=== PATIENT | female | born 1955 | race African-American/Black ===

== ENCOUNTER 2019-03-29 12:40 | Inpatient (IN) ==
[2019-03-29] MEDS ORDERED: ASPIRIN PO ONE (13:29)
--- NOTE | 2019-03-29 13:34 | EKG Report ---
Test Performed on : 03/29/2019 1:33:28 PM Test Reason : repeat, rhythm conversion Blood Pressure : / mmHG Vent. Rate : 090 BPM Atrial Rate : 090 BPM P-R Int : 184 ms QRS Dur : 072 ms QT Int : 340 ms P-R-T Axes : 000 -26 -14 degrees QTc Int : 415 ms Normal sinus rhythm. Septal infarct (cited on or before 29-MAR-2019) Abnormal ECG When compared with ECG of 29-MAR-2019 12:54, (Unconfirmed) Vent. rate has decreased BY 64 BPM Questionable change in initial forces of Anteroseptal leads Nonspecific T wave abnormality, worse in Inferior leads Nonspecific T wave abnormality now evident in Lateral leads Unconfirmed Result
--- NOTE | 2019-03-29 13:38 | EKG Report ---
Test Performed on : 03/29/2019 12:54:13 PM Test Reason : ELEVATED HEART RATE Blood Pressure : / mmHG Vent. Rate : 154 BPM Atrial Rate : 163 BPM P-R Int : 000 ms QRS Dur : 072 ms QT Int : 294 ms P-R-T Axes : 000 -06 014 degrees QTc Int : 470 ms Supraventricular tachycardia. Anteroseptal infarct (cited on or before 29-MAR-2019) Abnormal ECG When compared with ECG of 18-OCT-2009 14:50, Vent. rate has increased BY 76 BPM Questionable change in QRS axis Serial changes of Anteroseptal infarct present Unconfirmed Result
[2019-03-29 15:11] LABS: BASO# 0.03 X1000 (0.0-0.2); BASO% 0.4 % (0.0-0.8); EOS# 0.33 X1000 (0.0-0.7); EOS% 3.9 % (0.0-10.0); HEMOGLOBIN 12.9 g/dL (12.0-16.0); IMM GRAN# 0.02 X1000 (0.0-0.04); IMM GRAN% 0.2 % (0.0-0.5); LYMPH# 3.44 X1000 (1.2-3.4); LYMPH% 40.6 % (20.5-51.1); MCHC 33.1 g/dL (33-37); MCV 87.6 FL (81-99); MONO# 0.66 X1000 (0.11-0.59); MONO% 7.8 % (1.7-9.3); MPV 9.3 FL (7.4-10.4); NEUT# 3.99 X1000 (1.4-6.5); NEUT% 47.1 % (42.2-75.2); PLT 289 X1000 (130-400); RBC 4.45 XMIL (4.2-5.4); RDW 15.1 % (11.5-14.5); WBC 8.47 X1000 (4.8-10.8)
[2019-03-29 15:15] LABS: INR 1.03; PROTIME 13.6 Seconds (11.0-16.0)
[2019-03-29 15:16] LABS: PTT 29.9 Seconds (22.3-41.8)
[2019-03-29 15:42] LABS: ALB/GLOB RATIO 1.1; ALBUMIN 3.8 g/dL (3.5-5.0); CREATININE 9.6 mg/dL (0.5-0.9); MAGNESIUM 2.5 mg/dL (1.5-2.7); PHOSPHORUS 5.3 mg/dL (2.7-4.5); POTASSIUM 4.4 mmol/L (3.5-5.1); TOTAL BILIRUBIN 0.31 mg/dL (0.20-1.00); TOTAL PROTEIN 7.4 g/dL (6.3-8.3)
[2019-03-29 16:06] LABS: CK INDEX 2.9 (0.0-2.5); CK-MB 5.19 ng/mL (0.0-5.0)
[2019-03-29] MEDS ORDERED: LOPRESSOR PO ONE (16:42)
--- NOTE | 2019-03-29 16:55 | PROVIDER DOCUMENTATION ---
This chart was entered by Debby Hunter Scribe, acting as scribe for Matt Yeh MD. HPI-Cardiac General - General Chief Complaint: Palpitations Stated Complaint: INCREASED HEART RATE Time Seen by Provider: 03/29/19 13:23 Source: patient, family () Allergies/Adverse Reactions: Patient Allergies Allergy/AdvReac Type Severity Reaction Status Date / Time erythromycin base Allergy Mild RASH Verified 03/29/19 15:36 [Erythromycin Base] Home Medications: Home Medication List Medication Instructions Recorded Confirmed Last Taken Type Aspirin [Baby Aspirin] 81 mg PO DAILY 04/12/12 03/28/17 03/27/17 07:00 History Digoxin [Lanoxin] 125 mcg PO DAILY 04/12/12 03/28/17 03/27/17 07:00 History Diltiazem C.d. [Cardizem Cd] 240 mg PO DAILY 04/12/12 03/28/17 03/27/17 07:00 History LISINOpril [Prinivil] 20 mg PO DAILY 04/12/12 03/28/17 03/27/17 07:00 History Cyclobenzaprine [Flexeril] 10 mg PO TID #20 tablet 03/28/17 Unknown Rx Diclofenac Na D.r. [Voltaren] 50 mg PO 4XDAY #20 tab 03/28/17 Unknown Rx Insulin Novolog 70/30 [Novolog Mix 45 units SUBQ HS 03/28/17 03/28/17 03/27/17 21:00 History 70/30] Insulin Novolog 70/30 [Novolog Mix 72 units SUBQ DAILY 03/28/17 03/28/17 03/28/17 12:00 History 70/30] Labetalol HCl 300 mg PO DAILY 03/28/17 03/28/17 03/27/17 07:00 History Omeprazole [Prilosec] 20 mg PO DAILY@0700 #20 capsule 03/28/17 Unknown Rx Pentoxifylline 400 mg PO BID 03/28/17 03/28/17 03/27/17 07:00 History Spironolactone 100 mg PO DAILY 03/28/17 03/28/17 03/27/17 07:00 History - History of Present Illness-Cardiac Nature of Presenting Problem: 63 yobf presents to the ed from dialysis. pt did not complete tx at dialysis and was sent to ed due to HR being in 170's. pt when triage was in SVT in the 150's and sts has hx of afib but has not been an issue for over 10 years. pt once on exam was back in NSR and had no complaints. pt denies pain and could not feel her heart racing with onset. pt sts when she went to dialysis on Wednesday all was good and unsure when SVT started Location: denies: other (denies any chest pain or sob) Quality of Pain: reports: none Severity in ED: moderate Onset/Duration: unsure Timing: still present Context/Activities at Onset: reports: light activity Modifying Factors: improves with: nothing Palpitation Quality: fast/pounding heart beat History of arrythmia: reports: A-Fib Nitro Today/Relief: reports: no nitro taken today Aspirin Treatment Today: reports: no aspirin today Prior Chest Pain/Cardiac Workup: reports: other (hx of afib) Associated Symptoms: reports: abdominal pain Similar Symptoms Previously?: Yes (afib over 10 years prior) Recently Seen Here or By Another Healthcare Provider: No Review of Systems - Adult - REVIEW OF SYSTEMS - ADULT Constitutional: denies: chills, fever Eyes: reports: no symptoms reported Ears, Nose, Mouth & Throat: reports: no symptoms reported Cardiovascular: reports: see HPI, palpitations. denies: chest pain, syncope Respiratory: denies: cough, shortness of breath, wheezing Gastrointestinal: denies: diarrhea, nausea, vomiting Genitourinary: reports: no symptoms reported Musculoskeletal: denies: back pain, neck pain Integumentary: reports: no symptoms reported Neurological: reports: no symptoms reported Psychiatric: reports: no symptoms reported Endocrine: reports: no symptoms reported Hematologic/Lymphatic: reports: no symptoms reported Allergic/Immunologic: reports: no symptoms reported All Other Systems: Reviewed and Negative Past History - Adult - PAST MEDICAL HISTORY-ADULT Review of Records: reports: Old Records Reviewed, Nursing Assessment Review, Medications Reviewed, Social history reviewed & non-contributory. Major Childhood Illnesses: reports: denies history Cardiovascular: reports: HTN, hyperlipidemia Respiratory: reports: denies history Gastrointestinal: reports: denies history Obstetrical/Gynecological: reports: denies history Genitourinary: reports: dialysis, ESRD Musculoskeletal: reports: denies history Neurological: reports: denies history Psychiatric: reports: denies history Endocrine/Immune: reports: Diabetes Diabetes Type: Type 2 Other Conditions: reports: denies history - PRIOR SURGERIES/PROCEDURES Surgical/Procedure History: reports: hysterectomy, other (dialysis shunt placed) - IMMUNIZATION STATUS Childhood Immunizations: See Nurse Assessment Flu Vaccine: See Nurse Assessment - FAMILY HISTORY Family History: reviewed, not pertinent - SOCIAL HISTORY Smoking: denies Substance Use: denies Alcohol Use Frequency: never Living Situation: family Physical Exam-General - PHYSICAL EXAM-ADULT Initial Vital Signs Reviewed: Yes - CONSTITUTIONAL General Appearance: appears well, alert, no apparent distress (sx resolved prior to exam), obese - EYES Eyes: PERRL/EOMI, pink conjunctivae - HEAD, EARS, NOSE, MOUTH & THROAT HENMT: moist mucous membranes, normal ENT inspection - NECK Neck: non-tender, full range of motion, supple, normal inspection - RESPIRATORY Respiratory: chest non-tender, lungs clear, normal breath sounds - CARDIOVASCULAR Cardiovascular: normal peripheral pulses, regular rate, rhythm - GASTROINTESTINAL (ABDOMEN) Abdominal Exam: normal bowel sounds, non tender, soft - LYMPHATIC Lymphatic: no adenopathy - MUSCULOSKELETAL Back Exam: normal inspection, no CVA tenderness, no vertebral tenderness Extremity: other (has dialysi raph LUE with thrill felt but is not bounding) - SKIN Integumentary: normal color, normal turgor, warm/dry - NEUROLOGIC Neurologic: grossly normal - PSYCHIATRIC Psych/Mental Status: normal mood/affect, normal thought content, normal thought process, oriented x 3 - HEART Score HEART Score: History: Slightly Suspicious HEART Score: ECG: Non-Specific Repolarization Disturbance/LBBB/PM HEART Score: Age: 45-65 Years HEART Score: Risk Factors for Atherosclerotic Disease: > or = 3 Risk Factors or History of Atherosclerotic Disease HEART Score: Troponin: 1-3x Normal Limit Total HEART Score:: 5 Progress - PLAN OF CARE/RESULTS Progress/Plan/Lab Results: Vital Signs - 8 hr 03/29/19 13:03 03/29/19 15:32 Temperature 98.8 F Pulse Rate 150 H 83 Respiratory Rate 20 16 Blood Pressure 137/84 119/64 O2 Sat by Pulse Oximetry 96 97 Laboratory Results - last 24 hr 03/29/19 03/29/19 03/29/19 15:00 15:00 15:00 WBC 8.47 RBC 4.45 Hgb 12.9 Hct 39.0 MCV 87.6 MCH 29.0 MCHC 33.1 RDW Std Deviation 15.1 H Plt Count 289 MPV 9.3 Immature Gran % (Auto) 0.2 Neut % (Auto) 47.1 Lymph % (Auto) 40.6 Vernon % (Auto) 7.8 Eos % (Auto) 3.9 Baso % (Auto) 0.4 Immature Gran # (Auto) 0.02 Neut # (Auto) 3.99 Lymph # (Auto) 3.44 H Vernon # (Auto) 0.66 H Eos # (Auto) 0.33 Baso # (Auto) 0.03 PT INR PTT (Actin FS) Sodium 132 L Potassium 4.4 Chloride 89 L Carbon Dioxide 23 L Anion Gap 20 BUN 43 H Creatinine 9.6 H Estimated GFR/1.73 m2 5 BUN/Creatinine Ratio 4 Glucose 256 H Calculated Osmolality 284 Calcium 10.0 Phosphorus 5.3 H Magnesium 2.5 Total Bilirubin 0.31 AST 12 ALT 12 Alkaline Phosphatase 101 Creatine Kinase 182 H Creatine Kinase Index 2.9 H CK-MB (CK-2) 5.19 H Troponin T Mkg-G-[id number] Pept 2006 H Total Protein 7.4 Albumin 3.8 Globulin 3.6 Albumin/Globulin Ratio 1.1 03/29/19 03/29/19 15:00 15:00 WBC RBC Hgb Hct MCV MCH MCHC RDW Std Deviation Plt Count MPV Immature Gran % (Auto) Neut % (Auto) Lymph % (Auto) Vernon % (Auto) Eos % (Auto) Baso % (Auto) Immature Gran # (Auto) Neut # (Auto) Lymph # (Auto) Vernon # (Auto) Eos # (Auto) Baso # (Auto) PT 13.6 INR 1.03 PTT (Actin FS) 29.9 Sodium Potassium Chloride Carbon Dioxide Anion Gap BUN Creatinine Estimated GFR/1.73 m2 BUN/Creatinine Ratio Glucose Calculated Osmolality Calcium Phosphorus Magnesium Total Bilirubin AST ALT Alkaline Phosphatase Creatine Kinase Creatine Kinase Index CK-MB (CK-2) Troponin T 0.373 H* [id number] Pept Total Protein Albumin Globulin Albumin/Globulin Ratio Orders Category Date Time Status Cardiac Monitoring DIRECTED Care 03/29/19 13:29 Active Oxygen Therapy- ED Nursing DIRECTED Care 03/29/19 13:29 Active Saline Loc NOW Care 03/29/19 13:29 Active CHEST-PORTABLE [RAD] Stat Exams 03/29/19 16:42 Ordered CBC WITH ELECTRONIC DIFF [HEME] Stat Lab 03/29/19 15:00 Completed CK PROFILE [SP CHEM] Stat Lab 03/29/19 15:00 Completed COMPREHENSIVE METABOLIC PANEL [CHEM] Stat Lab 03/29/19 15:00 Completed MAGNESIUM [CHEM] Stat Lab 03/29/19 15:00 Completed PRO B-NATRIURETIC PEPTIDE Stat Lab 03/29/19 15:00 Completed PROTIME WITH INR [COAG] Stat Lab 03/29/19 15:00 Completed PTT [COAG] Stat Lab 03/29/19 15:00 Completed TROPONIN T Stat Lab 03/29/19 15:00 Completed phos [PHOSPHORUS] [CHEM] Stat Lab 03/29/19 15:00 Completed Aspirin Med 03/29/19 13:29 Discontinued 325 mg PO NOW ONE Metoprolol [Lopressor] Med 03/29/19 16:42 Discontinued 25 mg PO NOW ONE CP/SOB/Palp >45 yrs of Age Stat Oth 03/29/19 13:29 Ordered EKG [EKG] Stat Ther 03/29/19 12:54 Draft EKG [EKG] Stat Ther 03/29/19 13:29 Draft Transfer/Admit Order [TRANSFER] Routine Transfer 03/29/19 16:38 Ordered Result Diagrams: 03/29/19 15:00 03/29/19 15:00 - REASSESSMENT Reassessment #1 Time Reassessed: 16:34 Status: improving (Patient spontaneously converted to NSR shortly after arrival to bed. Given ASA. IN dialysis now. Will ask hospitalist to admit to run serial Thu.) - EKG 1 Time of EKG reading by physician:: 12:54 EKG Read and Signed by:: Matt Yeh EKG Interpretation (*Must complete 3 of following elements*): Abnormal Rate: 154 Rhythm: supraventricular tachycardia [place]: normal QRS: poor R wave progression KS Interval: normal ST Wave: normal Comments: anteroseptal infarct, age undetermined 2 Time of EKG reading by physician:: 13:33 EKG Read and Signed by:: Matt Yeh EKG Interpretation (*Must complete 3 of following elements*): Abnormal Rate: 90 Rhythm: nsr [place]: normal QRS: poor R wave progression, other (low voltage) [place] Interval: normal ST Wave: normal Prior EKG Comparison: changes noted Comments: septal infarct, age undetemined - CONSULTS/PCP/HOSPITALIST Notification #1 *Consult/PCP/Hospitalist*: mark with dr arreola Time Discussed: 13:53 (pt will have dialysis from er per mark) Reason/Comments: phone consult #2 Consult: Chandrika paged at 1630 Time Discussed: 16:40 Consult Disposition: Will see in ED #3 Consult: Sugey paged at 1630 Departure - Departure Date of Disposition Decision: 03/29/19 Time of Disposition Decision: 16:36 DIAGNOSIS: SVT (supraventricular tachycardia), Elevated troponin I level, ESRD on hemodialysis Disposition: ADMITTED INPATIENT 09 Certified Medical Emergency: Emergent Condition: Fair Referrals and Follow-Ups: Catracho Abreu [Primary Care Provider] - - Critical Care Note This patient required my direct & personal management of CC.: Yes Total Time (mins): 35 (interventions for renal/cardaic) Critical Care Statement: This patient required my direct personal management to treat or rule out processes, the absence of which, could potentiallly result in sudden, clinically significant life or limb threatening deterioration. Attestation - Physician/ STARR Attestation Patient care was provided by Advanced Practice Provider:: No The physician spent face to face time with patient:: Yes Advanced Practice Provider documentation review:: Supervising physician onsite and consulted in the evaluation and care of this patient. The physician did have a face to face encounter with the patient. This chart was documented by the indicated scribe, (Debby Hunter Scribe) and accurately reflects the services I performed and decisions made by me, Matt Yeh MD, as attested by the provider's signature.
[2019-03-29] MEDS ORDERED: TIGHT: 0.2 ML/HR FOR DIALYSIS MISC PRN (18:39)
[2019-03-29] MEDS ORDERED: HEPARIN IV PRN (18:39)
[2019-03-29] MEDS ORDERED: NS 2,000 ML MISC PRN (18:39)
--- NOTE | 2019-03-29 18:40 | HISTORY AND PHYSICAL ---
PRIMARY CARE PHYSICIAN: Catracho Abreu. CHIEF COMPLAINT: Palpitations and an increased heart rate. HISTORY OF PRESENTING ILLNESS: This is a 63-year-old female [facility] she was at dialysis receiving treatment today, and she was unable to finish her dialysis because her heart rate was found to be in the 170s. When she arrived to triage here at [facility], she was in SVT in the 150s. She spontaneously converted to normal sinus rhythm. She denied having any palpitations, chest pain, or shortness of breath. She states she has had a history of atrial fibrillation, but has not had any issues with that for over 10 years now. She states she has been on dialysis for about 2 years, and has had no problems with that. She went Wednesday and did not have any issues, and was unsure when the SVT even started. Her workup showed a sodium of 132, BUN of 43, and creatinine 9.6. She had a creatine kinase of 182, CK-MB of 5.19, and troponin 0.373. We do not have any previous labs to compare if she has had an elevated troponin secondary to her end-stage renal disease. She will be admitted for further evaluation and treatment. PAST MEDICAL HISTORY: End-stage renal disease with dialysis, hypertension, hyperlipidemia, diabetes type 2, and atrial fibrillation. PAST SURGICAL HISTORY: Hysterectomy and a dialysis shunt. FAMILY HISTORY: Reviewed and noncontributory. SOCIAL HISTORY: She currently lives with family. Denies any tobacco, alcohol or illicit drug use. ALLERGIES: To erythromycin base. HOME MEDICATIONS: Current list will need to be obtained, reconciled, reviewed, and restarted as appropriate. I will place an order for nursing to update and confirm home medications. LABORATORY DATA: White blood cell count of 8.47, hemoglobin 12.9, hematocrit 39, and platelets 289,000. PT and INR of 13.3 and 1.03. Sodium 132, potassium 4.4, chloride 89, CO2 23, BUN of 43, creatinine 9.6, glucose 256, and magnesium 2.5. Creatine kinase of 182, CK-MB of 5.19, and troponin 0.373. ProBNP of 2006. EKG on arrival showed SVT at 154 after she spontaneously converted. She we did an EKG that showed normal sinus rhythm at 90. REVIEW OF SYSTEMS: She denies any fever, chills, blurred vision, dizziness, chest pain, coughing, or shortness of breath. She denies any abdominal pain, constipation, diarrhea, burning or hurting with urination. PHYSICAL EXAMINATION: On arrival, she had a temperature of 98.8 degrees, pulse 150, respirations 20, blood pressure 137/84 and saturating 96% on room air. Currently, her heart rate is 83. GENERAL: This is a 63-year-old female who is lying in the bed and answers questions appropriately. HEENT: Normocephalic, atraumatic. Normal ENT inspection. Oropharynx and nares are clear. EYES: Pupils are equal, round, and reactive to light and accommodation. Extraocular movements are intact. NECK: Normal inspection. Normal range of motion. LUNGS: Clear to auscultation bilaterally with equal lung expansion and chest wall movement. HEART: Regular rate and rhythm. No murmurs, rubs, or gallops. ABDOMEN: Soft, nontender, and nondistended. Bowel sounds are present x4 quadrants. MUSCULOSKELETAL: She had 5/5 strength x4 extremities. NEUROLOGICAL: The cranial nerves 2-12 are grossly intact. ASSESSMENT: 1. SVT spontaneously converted back to normal sinus rhythm. 2. Elevated troponin. 3. End-stage renal disease with dialysis. 4. Diabetes type 2. 5. History of atrial fibrillation. PLAN: She will be admitted to the medical unit, and placed on telemetry. She is currently in the dialysis department receiving the remainder of her dialysis from today. We will consult Dr. Triplett. Consult Cardiology. Place on a diabetic diet. SCD's for DVT prophylaxis. Update and confirm home medications. Do serial cardiac enzymes q.8h x3. Recheck CBC and BMP in the morning. I will place on pattern blood sugars with sliding scale insulin. Further orders after seen by attending and consultants. Dictated by LENI Hall for Dimitrios Harvey MD cc: LENI Hall MD
--- NOTE | 2019-03-29 18:46 | Diag Imaging Result Doc PS360 ---
EXAM: CHEST-PORTABLE HISTORY: CP TECHNIQUE: Chest single view COMPARISON: 05/05/2017 FINDINGS: The lungs are well expanded. The heart is not enlarged. The vessels are not distended. There are no infiltrates. No effusion identified. IMPRESSION: Negative exam. Electronically signed by Dontae Lagos 03/29/2019 6:43 PM
[2019-03-29] MEDS ORDERED: NEURONTIN PO SCH (21:00)
[2019-03-29] MEDS ORDERED: CARDIZEM CD PO SCH (21:00)
[2019-03-29] MEDS ORDERED: NOVOLOG MIX 70/30 SUBQ SCH (21:00)
[2019-03-29] MEDS ORDERED: AVAPRO PO SCH (21:00)
[2019-03-29] MEDS ORDERED: TYLENOL PO PRN (21:22)
[2019-03-29] MEDS ORDERED: ZOFRAN IV PRN (21:22)
[2019-03-29] MEDS: HUMALOG SUBQ SCH (22:33)
[2019-03-29 23:01] LABS: CK INDEX 2.5 (0.0-2.5); CK-MB 4.44 ng/mL (0.0-5.0)
[2019-03-29] MEDS: NOVOLOG MIX 70/30 SUBQ SCH (23:31)
[2019-03-30] MEDS: HUMALOG SUBQ SCH ×2 (06:34→11:45)
--- NOTE | 2019-03-30 06:34 | HISTORY AND PHYSICAL ---
ADDENDUM: The patient was seen and examined by me face to face. All the laboratory, vital signs and images were reviewed. The patient presented to the hospital with elevated heart rate. It looks like SVT in the 170s. Apparently, she was getting dialysis, although she was about to start dialysis today, but before that, she tried to eat something, and she felt some kind of discomfort in the epigastric area like if she has been eating too much. They checked her heart rate, and it was elevated, and they sent it to the hospital immediately. She was evaluated. She does have a history of atrial fibrillation, but she has not had any kind of problem for the past 10 years. She has been on dialysis for 2 years now. She converted by herself to normal sinus in the emergency department. She was admitted for observation, and we started dialysis also today. Cardiology Department has been consulted. She will be transferred to the PCU unit. We will monitor this patient closely. I will continue with her home medications. I agree with the nurse practitioner's assessment and plan. cc: Dimitrios Harvey MD
[2019-03-30 06:35] LABS: BASO# 0.05 X1000 (0.0-0.2); BASO% 0.7 % (0.0-0.8); EOS# 0.29 X1000 (0.0-0.7); EOS% 3.8 % (0.0-10.0); HEMOGLOBIN 12.5 g/dL (12.0-16.0); IMM GRAN# 0.02 X1000 (0.0-0.04); IMM GRAN% 0.3 % (0.0-0.5); LYMPH# 3.03 X1000 (1.2-3.4); LYMPH% 39.5 % (20.5-51.1); MCH 28.4 PG (27-31); MCHC 32.1 g/dL (33-37); MCV 88.6 FL (81-99); MONO# 0.58 X1000 (0.11-0.59); MONO% 7.6 % (1.7-9.3); MPV 9.5 FL (7.4-10.4); NEUT% 48.1 % (42.2-75.2); PLT 283 X1000 (130-400); RDW 15.2 % (11.5-14.5); WBC 7.67 X1000 (4.8-10.8)
[2019-03-30] MEDS: NOVOLOG MIX 70/30 SUBQ SCH (07:15)
[2019-03-30 07:21] LABS: CREATININE 9.1 mg/dL (0.5-0.9)
[2019-03-30] MEDS: PHOSLO PO SCH ×2 (08:40→11:44)
--- NOTE | 2019-03-30 09:11 | NEPHROLOGY CONSULTATION ---
DATE: 03/30/2019 REASON FOR ADMISSION: Palpitations with elevated heart rate. REASON FOR CONSULTATION: Assist with evaluation and treatment. CONSULTING PHYSICIAN: Dr. Sonya Riojas NP. HISTORY OF PRESENT ILLNESS: Ms Tracy is a 63-year-old female who presented to [facility] after starting dialysis at the [facility] on spring. The patient stated that she was unable to finish her dialysis treatment secondary to having an elevated heart rate. When she arrived at [facility], she was found to be in SVT in the 150 to 170 range. It was noted that she had spontaneously converted to normal sinus rhythm. She denied any palpitations, any chest pain, no increased work of breathing, no increased lower extremity swelling. She states that she had a history of atrial fibrillation in the past. She denies any fever or chills. No nausea, vomiting, no diarrhea. She dialyzes Wednesday, Wednesday, Wednesday and has not had any issues during the week. Upon evaluation, she did have a slight elevated CPK of 182 with an MB of 5.1, troponin of 0.373, mostly expected secondary to a dialysis patient with a graft to her left upper arm immediately post dialysis. Continuing to watch trend. She has denied any hematochezia, hemoptysis or hematuria. No complaints today. PAST MEDICAL HISTORY: End-stage renal disease with hemodialysis at the [facility] on Wednesday, Wednesday, Wednesday, hypertension, hyperlipidemia, diabetes mellitus type 2, atrial fibrillation, anemia of chronic disease and osteodystrophy of chronic disease. PAST SURGICAL HISTORY: She has had a hysterectomy and a dialysis graft to her left upper arm. FAMILY HISTORY: Noncontributory to kidney disease. SOCIAL HISTORY: She lives with her family. Denies tobacco, alcohol or illicit drug. ALLERGIES: Listed as erythromycin. HOME MEDICATIONS: Have been reconciled indicating Cardizem CD, NovoLog mix 70/30, Neurontin, irbesartan, PhosLo. REVIEW OF SYSTEMS: Times 10 with pertinent positives listed above in the HPI. VITAL SIGNS: Most recent, temperature 98.4 degrees, blood pressure 116/59, heart rate 84. She is sinus on the monitor. Respirations are 18. She is on room air, last recorded saturation 95%. She has had 350 in, she has had 3.3 L removed off with dialysis yesterday upon arrival to the ER. LABORATORY DATA: Sodium 132, potassium 4.4, chloride is 89, CO2 23, BUN 43, creatinine 9.6, glucose 256, her anion gap is 20, calcium 10, phosphorus 5.3, magnesium 2.5, albumin 3.8. White count 8.47, hemoglobin 12.9, hematocrit 39, platelet count 289,000. The patient's pro-time is 13.6, INR 1.03, PTT 29.9 with a troponin that is now down this a.m. to 0.306 noted. PHYSICAL EXAMINATION: General: This is a 63-year-old female. She is resting quietly in bed. States that she slept well. She has no complaints. She appears chronically ill. No acute distress. Skin: Warm and dry. HEENT: Normocephalic, atraumatic. Conjunctiva is pale. She has JENNIFER. Mucous membranes are dry. Neck: Supple. Trachea midline. Unable to determine JVD secondary to body habitus with her neck. Cardiovascular: She is regular rate and rhythm. Suspected systolic murmur auscultated. Lungs: Clear to auscultation bilaterally. Equal excursion on room air. Abdomen: Large, round, soft, nontender. Positive bowel sounds. Genitourinary: Not inspected. The patient states that she continues to void with dialysis assist. Extremities: She had slight swelling to her left leg which was larger than her right secondary to previous neurological injury. Adequate pulses palpable. Alert and oriented x3. ASSESSMENT AND PLAN: 1. Chronic kidney disease stage 5D. The patient tolerated her dialysis in center in the hospital yesterday evening for 3.3 L. 2. Electrolytes and acid-base balance. These are acceptable. 3. Anemia. This is in target. 4. Supraventricular tachycardia. The patient spontaneously converted in the emergency room yesterday. She was monitored overnight. No indications for intervention from our perspective. If she is discharged, she is to follow up with her dialysis clinic per her routine prescription. I would like to thank you for allowing us to follow with this patient. Dictated by LENI Beverly for Naomi Peña MD cc: LENI Beverly
--- NOTE | 2019-03-30 09:25 | EKG Report ---
Test Performed on : 03/30/2019 09:04:19 AM Test Reason : CP Blood Pressure : / mmHG Vent. Rate : 080 BPM Atrial Rate : 080 BPM P-R Int : 160 ms QRS Dur : 084 ms QT Int : 408 ms P-R-T Axes : 039 002 022 degrees QTc Int : 470 ms Sinus rhythm. with premature atrial complexes. Otherwise normal ECG When compared with ECG of 29-MAR-2019 13:33, (Unconfirmed) premature atrial complexes. are now present QT has lengthened Confirmed by Zoya GONZALEZ, Mahendra Dacosta ([id number]) on 03/30/2019 8:47:23 PM
--- NOTE | 2019-03-30 09:30 | PROGRESS NOTE ---
DATE: 03/30/2019 SUBJECTIVE: The patient is resting comfortably in bed. She is status post dialysis yesterday night and she tolerated that procedure well. No more episodes of SVT, Cardiology Department will evaluate this patient and depending on their recommendations, this patient can be discharged or we can keep her here for more treatment. OBJECTIVE: Vital Signs: Temperature 98.4 degrees, pulse 74, respiratory rate 13, blood pressure 116/47, oxygen saturation 98 on room air. HEENT: Head normocephalic, no trauma. PERRLA. Neck: Supple no JVD. No masses. Central trachea. Chest: Clear to auscultation. No wheezing. Some crepitus at the bases. Abdomen: Soft, obese, protuberant. Nontender, nondistended. No hepatosplenomegaly. Extremities: No edema, no clubbing, no cyanosis. Neurological: The patient is alert and oriented x3. No focal deficits. LABORATORY DATA: WBC 7.6, hemoglobin 12.5, hematocrit 39, platelets 283,000. Sodium 137, potassium chloride 193, bicarbonate 23, BUN 39, creatinine 9.1, glucose 216, calcium 10. Troponin is 0.341. ASSESSMENT AND PLAN: 1. Supraventricular tachycardia, spontaneous converted back to normal sinus rhythm, aware. No more episodes of supraventricular tachycardia during the night. She is not complaining of shortness of breath, chest pain, and actually she does not have any kind of symptoms at this moment. 2. Elevated troponins. This patient has end-stage renal disease and probably the troponins are elevated because of that. She is not complaining of chest pain. I do not see any ST problems in the EKG done yesterday night. I will repeat it today and I will wait for Cardiology recommendations. 3. End-stage renal disease. Continue with dialysis per Nephrology Department. 4. Type 2 diabetes, stable. Continue with the same management. 5. History of atrial fibrillation, aware. I am not sure why this patient is not on blood thinners at home. She is on diltiazem, though. I will wait for Cardiology recommendations. cc: Dimitrios Harvey MD
[2019-03-30 11:17] VITALS: BP 105/57
--- NOTE | 2019-03-30 15:28 | CARDIOLOGY CONSULTATION ---
DATE: 03/30/2019 REASON FOR CONSULT: Cardiology was consulted for SVT. HISTORY OF PRESENT ILLNESS: This is a 63-year-old Afro[place] lady who came to the emergency room after receiving a dialysis treatment. She finished her dialysis and was found to have a heart rate of 170 beats per minute. She came to the emergency room. Electrocardiogram revealed SVT, rate of 150. Subsequently converted to sinus rhythm spontaneously. She has had a history of atrial fibrillation, but that was greater than 10 years back. In the recent few months she has had transient palpitations. There is no dizziness. There is no syncope. She has chronic renal insufficiency, undergoes dialysis. REVIEW OF SYSTEMS: A 14-point review of system was done. GI System: There is no history of nausea, vomiting, diarrhea. There is no history of hematemesis or melena. CENTRAL NERVOUS SYSTEM: No focal weakness to suggest a CVA or TIA. System: There is no dysuria or hematuria. PAST MEDICAL HISTORY: 1. End-stage renal disease, on dialysis. 2. Hypertension. 3. Hyperlipidemia. 4. Diabetes. 5. History of atrial fibrillation more than 10 years back. CURRENT MEDICATIONS: Diltiazem 240 mg a day, gabapentin, insulin as directed, Avapro 150 mg a day. She received a 1 time dose of Lopressor last night. PHYSICAL EXAMINATION: Vital Signs: Blood pressure was 105/57. Cardiovascular System: Normal jugular venous pressure. There is no thyromegaly. No carotid bruit. First and second heart sounds were heard. There are no murmurs. Respiratory System: Normal air entry. There are no crepitations or rhonchi. Abdomen: Soft, nontender. There was no guarding or rigidity. Bowel sounds were heard. Central nervous system: Alert and oriented. Was moving all 4 extremities. Extremities: Examination of extremities revealed no pedal edema. ASSESSMENT AND PLAN: 1. Ms. Pati Tracy is a 63-year-old -[place] lady with a history of hypertension, diabetes, end-stage renal disease, on dialysis, was admitted with palpitations, was noted to be in SVT. She has spontaneously converted to sinus rhythm. Would recommend continue with her Cardizem. 2. She is on Avapro for hypertension. I have not made any changes. We can adjust the dosage should her blood pressure be low as an outpatient. 3. She has mild abnormal troponin. No chest pains. No ST-T changes to suggest any ischemia. This is secondary to chronic renal insufficiency. 4. As an outpatient we will set her up to have a 30 day loop monitor and I will see her back with the results of the 30 day loop monitor. Thank you for the consult. cc: Devin Pedraza MD
--- NOTE | 2019-03-31 05:27 | DISCHARGE SUMMARY ---
ADMISSION DATE: 03/29/2019 DISCHARGE DATE: 03/30/2019 DISCHARGE DIAGNOSES: 1. Supraventricular tachycardia, spontaneously converted back to normal sinus rhythm. 2. Elevated troponin's. 3. End-stage renal disease with dialysis. 4. Type 2 diabetes. 5. History of atrial fibrillation. PROCEDURES PERFORMED: Chest x-ray dated 03/29/2019. Impression: Negative exam. CONSULTATIONS: 1. Cardiology Department Dr. Pedraza. 2. Nephrology Department Dr. Triplett. HOSPITAL COURSE: A 63-year-old female presented to [facility] after experiencing some abdominal fullness. After that, she was evaluated at the dialysis center, who found out that this patient's heart rate was elevated in the 170s. She arrived to triage at [facility], and she was in SVT in the 150's. She spontaneously converted to normal sinus rhythm. After that, she received dialysis and she is tolerating that really well. Her troponin's were elevated, but she was not complaining of chest pain or shortness of breath. No EKG changes. Cardiology Department evaluated this patient, and they have decided to discharge this patient and set up a cardiac event monitor detector for 30 days and follow up as an outpatient. She is completely asymptomatic at this moment. PHYSICAL EXAMINATION: Vital Signs: Temperature 98.5 degrees, pulse 88, respiratory rate 18, blood pressure 105/57, and oxygen saturation 95% on room air. HEENT: Head normocephalic. No trauma. PERRLA. Neck: Supple. No JVD. No masses. Central trachea. Chest: Clear to auscultation. No wheezing. No rales. Abdomen: Soft, nontender, and nondistended. No hepatosplenomegaly. Extremities: No edema. No clubbing. No cyanosis. Neurological: The patient is alert. She is oriented. No focal deficits. LABORATORY: WBC 7.6, hemoglobin 12.5, hematocrit 39, and platelets 283,000. Sodium 137, potassium 4, chloride 93, bicarbonate 23, BUN 39, creatinine 9.1, glucose 216, and calcium 10. DISCHARGE MEDICATIONS: Basically, she will continue with her home medications. 1. Calcium acetate 667 mg p.o. t.i.d. 2. Diltiazem CD 240 mg p.o. at bedtime. 3. Gabapentin 300 mg p.o. at bedtime. 4. Insulin NovoLog 70/30, 25 units b.i.d. 5. Irbesartan 150 mg p.o. at bedtime. FOLLOW-UP: Cardiology Department Dr. Pedraza at the end of the cardiac event monitoring. cc: Dimitrios Harvey MD
== END 2019-03-30 15:18 | disposition home or self-care (01) | DRG 308 ==
LOC: ED 12:40 → 2N 16:51
PROVIDERS: ATTEND Internal Medicine